=== PATIENT | female | born 1950 | race Caucasian/White ===

== ENCOUNTER 2018-12-08 13:51 | Emergency (ER) | payer OTHER ==
[2018-12-08] MEDS ORDERED: HYDROCODONE/APAP 5/325 MG TAB ONE (14:43)
--- NOTE | 2018-12-08 15:32 | RAD REPORT ---
EXAM DESCRIPTION: RAD - Elbow Left 3 View - 12/08/2018 2:55 pm CLINICAL HISTORY: Left elbow pain and swelling x1 month, no precipitating injury COMPARISON: None. FINDINGS: No fracture is identified and no elevated posterior fat pad. There is no dislocation or pe riosteal reaction noted. Soft tissues are edematous posterior to the distal humerus. There are sever al small calcifications along the posterior margin of the olecranon suspected to be degenerative or p osttraumatic calcifications in the triceps tendon. IMPRESSION: Degenerative or posttraumatic calcifications are suspected in the triceps tendon near th e ulna insertion. No fracture or acute bone or joint finding.
--- NOTE | 2018-12-08 15:43 | EDPHYS ---
Physician Documentation [facility] Name: Nicolasa Donaldson Age: 68 yrs Sex: Female : 1950 Arrival Date: 12/08/2018 Time: 13:56 Bed 25 Private MD: Caty Niño R ED Physician Xavier Jane HPI: 12/08 14:30 This 68 yrs old Female presents to ER via Wheelchair with complaints of Elbow pm1 Injury. 14:30 The patient or guardian complains of pain. The complaints affect the left elbow. pm1 Context: The problem was sustained at an unknown location, resulted from possible from increased use of arms for taking out garbage recently. debilitated. Onset: The symptoms/episode began/occurred 1 month(s) ago. Treatment prior to arrival includes: no previous treatment. Modifying factors: The symptoms are alleviated by nothing. the symptoms are aggravated by lifting weight, bending arm. Associated signs and symptoms: Pertinent negatives: decreased range of motion, deformity, fever, numbness, tingling. Severity of symptoms: in the emergency department the symptoms are unchanged. The patient has not experienced similar symptoms in the past. The patient has not recently seen a physician. Historical: - Allergies: 13:58 Codeine; hb - PMHx: 13:58 Anxiety; Diverticulitis; Hypertension; Hypothyroidism; TIA; hb - PSHx: 13:58 exploratory abd surgery; Knee surgery; Colon resection; Cholecystectomy; Appendectomy; hb Colostomy; - Immunization history:: Adult Immunizations up to date. - Social history:: Smoking status: Patient/guardian denies using tobacco. - Ebola Screening: : No symptoms or risks identified at this time. ROS: 14:30 Constitutional: Negative for fever, chills, and weight loss, Eyes: Negative for injury, pm1 pain, redness, and discharge, ENT: Negative for injury, pain, and discharge, Neck: Negative for injury, pain, and swelling, Cardiovascular: Negative for chest pain, palpitations, and edema, Respiratory: Negative for shortness of breath, cough, wheezing, and pleuritic chest pain, Abdomen/GI: Negative for abdominal pain, nausea, vomiting, diarrhea, and constipation, Back: Negative for injury and pain. 14:30 Skin: Negative for injury, rash, and discoloration, Neuro: Negative for headache, weakness, numbness, tingling, and seizure. 14:30 MS/extremity: Positive for pain, of the left elbow, Negative for decreased range of motion, deformity. Exam: 14:30 Constitutional: This is a well developed, well nourished patient who is awake, alert, pm1 and in no acute distress. Head/Face: Normocephalic, atraumatic. Neck: Trachea midline, no thyromegaly or masses palpated, and no cervical lymphadenopathy. Supple, full range of motion without nuchal rigidity, or vertebral point tenderness. No Meningismus. Chest/axilla: Normal chest wall appearance and motion. Nontender with no deformity. No lesions are appreciated. Cardiovascular: Regular rate and rhythm with a normal S1 and S2. No gallops, murmurs, or rubs. Normal PMI, no JVD. No pulse deficits. Respiratory: Lungs have equal breath sounds bilaterally, clear to auscultation and percussion. No rales, rhonchi or wheezes noted. No increased work of breathing, no retractions or nasal flaring. Abdomen/GI: Soft, non-tender, with normal bowel sounds. No distension or tympany. No guarding or rebound. No evidence of tenderness throughout. Back: No spinal tenderness. No costovertebral tenderness. Full range of motion. 14:30 Skin: Warm, dry with normal turgor. Normal color with no rashes, no lesions, and no evidence of cellulitis. 14:30 Musculoskeletal/extremity: Extremities: grossly normal except: noted in the left elbow: tenderness at triceps olecranon insertion point, There is no evidence of deformity. 14:30 Neuro: Orientation: is normal, Motor: is normal, moves all fours. Vital Signs: 13:57 BP 132 / 82; Pulse 69; Resp 16; Temp 98.4; Pulse Ox 96% on R/A; Weight 95.25 kg; Height hb 5 ft. 5 in. (165.10 cm); Pain 10/10; 14:15 BP 123 / 77; Pulse 65; Resp 16; Temp 98.3; Pulse Ox 96% ; lt1 15:01 BP 119 / 76; Pulse 65; Resp 17 S; Pulse Ox 96% on R/A; ca1 13:57 Body Mass Index 34.95 (95.25 kg, 165.10 cm) MDM: 14:01 Patient medically screened. [facility] 15:40 Data reviewed: vital signs. Data interpreted: Pulse oximetry: on room air is 96 %. pm1 Interpretation: normal. Counseling: I had a detailed discussion with the patient and/or guardian regarding: the historical points, exam findings, and any diagnostic results supporting the discharge/admit diagnosis, radiology results, the need for outpatient follow up, for definitive care, a orthopedic surgeon, to return to the emergency department if symptoms worsen or persist or if there are any questions or concerns that arise at home. 12/08 14:23 Order name: Elbow Left 3 View XRAY; Complete Time: 15:39 pm1 12/08 15:40 Order name: Sling; Complete Time: 15:59 pm1 Administered Medications: 14:30 Drug: [place] 5 mg-325 mg 1 tabs Route: PO; ca1 15:02 Follow up: Response: No adverse reaction; Pain is decreased ca1 Disposition: 12/08/18 15:41 Discharged to Home. Impression: Pain in left elbow. - Condition is Stable. - Discharge Instructions: Joint Pain, Arthritis, Musculoskeletal Pain, How to Use a Sling. - Prescriptions for Cyclobenzaprine 10 mg Oral Tablet - take 1 tablet by ORAL route every 8-12 hours As needed; 30 tablet. - Medication Reconciliation Form, Thank You Letter, Antibiotic Education, Prescription Opioid Use form. - Follow up: Emergency Department; When: As needed; Reason: Worsening of condition. Follow up: Private Physician; When: 2 - 3 days; Reason: Recheck today's complaints, Continuance of care, Re-evaluation by your physician. - Problem is new. - Symptoms have improved. Addendum: 12/13/2018 16:48 Co-signature as Attending Physician, Xavier Jane MD I agree with the assessment and c leal plan of care. Signatures: Dispatcher [employer] EDXavier Gallo MD MD cha Marinas, Patrick, ANGELICA EDITORIAL SPECIALIST pm1 Krystyna Santos, RN RN hb Marizol Cobos RN RN ca1 Corrections: (The following items were deleted from the chart) 12/08 16:08 15:41 12/08/2018 15:41 Discharged to Home. Impression: Pain in left elbow. Condition is ca1 Stable. Forms are Medication Reconciliation Form, Thank You Letter, Antibiotic Education, Prescription Opioid Use. Follow up: Emergency Department; When: As needed; Reason: Worsening of condition. Follow up: Private Physician; When: 2 - 3 days; Reason: Recheck today's complaints, Continuance of care, Re-evaluation by your physician. Problem is new. Symptoms have improved. pm1
--- NOTE | 2018-12-08 15:43 | ER ---
Nurse's Notes [facility] Name: Nicolasa Donaldson Age: 68 yrs Sex: Female : 1950 Arrival Date: 12/08/2018 Time: 13:56 Bed 25 Private MD: Caty Niño R Diagnosis: Pain in left elbow Presentation: 12/08 13:56 Presenting complaint: Left elbow pain and swelling x 1 month. Denies injury. Transition hb of care: patient was not received from another setting of care. Onset of symptoms is unknown. Risk Assessment: Do you want to hurt yourself or someone else? Patient reports no desire to harm self or others. Care prior to arrival: None. 13:56 Method Of Arrival: Wheelchair hb 13:56 Acuity: CAMILO 4 hb 14:00 Initial Sepsis Screen: Does the patient meet any 2 criteria? No. Patient's initial ca1 sepsis screen is negative. Does the patient have a suspected source of infection? No. Patient's initial sepsis screen is negative. Triage Assessment: 14:53 General: Appears. Injury Description:. ca1 Historical: - Allergies: 13:58 Codeine; hb - PMHx: 13:58 Anxiety; Diverticulitis; Hypertension; Hypothyroidism; TIA; hb - PSHx: 13:58 exploratory abd surgery; Knee surgery; Colon resection; Cholecystectomy; Appendectomy; hb Colostomy; - Immunization history:: Adult Immunizations up to date. - Social history:: Smoking status: Patient/guardian denies using tobacco. - Ebola Screening: : No symptoms or risks identified at this time. Screenin:00 Abuse screen: Denies threats or abuse. Denies injuries from another. Nutritional ca1 screening: No deficits noted. Tuberculosis screening: No symptoms or risk factors identified. Fall Risk Ambulatory Aid- Crutches/Cane/Walker (15 pts). Assessment: 14:00 General: Appears in no apparent distress. comfortable, Behavior is calm, cooperative, ca1 appropriate for age. Pain: Complains of pain in left elbow Pain does not radiate. Pain currently is 8 out of 10 on a pain scale. Pain began. Neuro: Level of Consciousness is awake, alert, obeys commands, Oriented to person, place, time, situation. Cardiovascular: Heart tones S1 S2 present Capillary refill < 3 seconds Patient's skin is warm and dry. Respiratory: Airway is patent Respiratory effort is even, unlabored, Respiratory pattern is regular, symmetrical, Breath sounds are clear bilaterally. GI:. Derm: Skin is intact, is healthy with good turgor, Skin is pink, warm \T\ dry. Musculoskeletal: Circulation, motion, and sensation intact. Capillary refill < 3 seconds, Range of motion: intact in all extremities. 15:01 Reassessment: Patient appears in no apparent distress at this time. Patient and/or ca1 family updated on plan of care and expected duration. Pain level reassessed. Patient is alert, oriented x 3, equal unlabored respirations, skin warm/dry/pink. Vital Signs: 13:57 BP 132 / 82; Pulse 69; Resp 16; Temp 98.4; Pulse Ox 96% on R/A; Weight 95.25 kg; Height hb 5 ft. 5 in. (165.10 cm); Pain 10/10; 14:15 BP 123 / 77; Pulse 65; Resp 16; Temp 98.3; Pulse Ox 96% ; lt1 15:01 BP 119 / 76; Pulse 65; Resp 17 S; Pulse Ox 96% on R/A; ca1 13:57 Body Mass Index 34.95 (95.25 kg, 165.10 cm) hb ED Course: 13:56 Patient arrived in ED. mr 13:56 Caty Niño MD is Private Physician. mr 13:57 Triage completed. hb 13:57 Arm band placed on. hb 13:59 Goyo Finley NP is PHCP. pm1 13:59 Xavier Jane MD is Attending Physician. pm1 14:00 Patient has correct armband on for positive identification. Bed in low position. Call ca1 light in reach. Side rails up X 1. Pulse ox on. NIBP on. Warm blanket given. Pillow given. 14:00 No provider procedures requiring assistance completed. Patient did not have IV access ca1 during this emergency room visit. 14:24 Marizol Cobos, VEGA is Primary Nurse. ca1 14:52 Elbow Left 3 View XRAY In Process Unspecified. EDMS 15:40 Sling applied to left arm. ca1 Administered Medications: 14:30 Drug: [place] 5 mg-325 mg 1 tabs Route: PO; ca1 15:02 Follow up: Response: No adverse reaction; Pain is decreased ca1 Outcome: 15:41 Discharge ordered by MD. pm1 16:08 Discharged to home via wheelchair, with family. ca1 16:08 Condition: stable 16:08 Discharge instructions given to patient, Instructed on discharge instructions, follow up and referral plans. medication usage, Demonstrated understanding of instructions, follow-up care, medications, Prescriptions given X 1. 16:08 Patient left the ED. ca1 Signatures: Dispatcher [employer] EDCinthya Gilbert SaviGoyo davis, CONDUIT MECHANIC CONDUIT MECHANIC pm1 Krystyna Santos, RN RN Marizol Cobos RN RN Katia Mcneal lt1
[2018-12-08 16:22] VITALS: O2SAT 96
[2018-12-08 16:23] VITALS: TEMP 98.3
[2018-12-08 16:24] VITALS: BP 119/76
== END 2018-12-08 16:08 | disposition home or self-care (01) ==
LOC: ER 13:51
DX: M25.522 Pain in left elbow (principal); I10 Essential (primary) hypertension; Z88.5 Allergy status to narcotic agent
CPT/HCPCS: 99284

== ENCOUNTER 2023-04-14 12:36 | Emergency (ER) | payer OTHER ==
[2023-04-14 14:21] LABS: Absolute Lymphocytes (CBC) 0.7 K/uL (0.7-4.9); Hematocrit 44.9 % (36.0-45.0); Lymphocytes % 3.2 % (15.3-44.8); MCV 96.5 fL (80-100); MPV 7.5 fL (7.6-11.3); Platelets 241 thou/uL (152-406); RBC Red Blood Cell Count 4.65 M/uL (3.86-4.86)
--- NOTE | 2023-04-14 14:29 | RAD REPORT ---
EXAM DESCRIPTION: CT - Head Brain Wo Cont - 04/14/2023 1:44 pm CLINICAL HISTORY: fall, trauma COMPARISON: No comparisons TECHNIQUE: Noncontrast head CT images ad were obtained without IV contrast. Multiplanar reformats we re generated and reviewed. All CT scans are performed using dose optimization technique as appropriate and may include automated exposure control or mA/KV adjustment according to patient size. FINDINGS: No intracranial hemorrhage, mass, or edema. Midline structures are unremarkable. Normal ventricular caliber for age. Patchy periventricular and deep white matter hypodensities, nonspecific, most suggestive of chronic s mall vessel ischemic changes. Melvin-white matter differentiation is preserved, without evidence of acute infarct. No abnormal extra- axial fluid collections. Mastoid air cells and visualized portions of the paranasal sinuses are clear. No acute bony findings. Soft tissue swelling and subcutaneous fat stranding overlying the right parotid region. IMPRESSION: No evidence of an acute intracranial process. Soft tissue swelling/contusion overlying the right parotid region.
[2023-04-14 15:05] LABS: Platelet Estimate ADEQ
[2023-04-14 15:06] LABS: Blood Morphology Comment NOT SEEN (NOT SEEN)
[2023-04-14 15:10] LABS: Potassium 3.6 mEq/L (3.5-5.1)
--- NOTE | 2023-04-14 15:24 | ER ---
Nurse's Notes [facility] Name: Liudmila Donaldson Age: 73 yrs Sex: Female : 1950 Arrival Date: 04/14/2023 Time: 12:36 Bed 2 Private MD: Diagnosis: Rhabdomyolysis;Cellulitis of left lower limb Presentation: 04/14 13:38 Chief complaint: EMS states: Pt from home, fell last night when trying to get up to use ph the restroom , fell at approx 10 last night, fell onto hr knees and then her face, found on ground by daughter at 1130 today, bruising to both knees, L lower extremity red, warm and swollen, skin tear to dorsal aspect of R hand, bruising to chin, hematoma to forehead, pt hypertensive, did not take morning BP meds. Coronavirus screen: Vaccine status: Patient reports receiving the 2nd dose of the covid vaccine. Ebola Screen: No symptoms or risks identified at this time. Initial Sepsis Screen: Does the patient meet any 2 criteria? No. Patient's initial sepsis screen is negative. Does the patient have a suspected source of infection? No. Patient's initial sepsis screen is negative. Risk Assessment: Do you want to hurt yourself or someone else? Patient reports no desire to harm self or others. Onset of symptoms was April 14, 2023. 13:38 Method Of Arrival: EMS: [facility] 13:38 Acuity: CAMILO 2 ph Historical: - Allergies: 13:52 Codeine; ph - PMHx: 13:52 Anxiety; Diverticulitis; Hypertension; Hypothyroidism; TIA; ph - Immunization history:: Adult Immunizations unknown. - Social history:: Smoking status: . Screenin:11 [facility] ED Fall Risk Assessment (Adult) History of falling in the last 3 months, ph including since admission Yes- single mechanical fall (1 pt) Confusion or Disorientation No (0 pts) Intoxicated or Sedated No (0 pts) Impaired Gait No (0 pts) Mobility Assist Device Used No (0 pt) Altered Elimination No (0 pt) Score/Fall Risk Level 0 - 2 = Low Risk Oriented to surroundings, Maintained a safe environment, Provided non-skid footwear, Hourly rounding (assess needs \T\ fall precautionary measures) done. Abuse screen: Denies threats or abuse. Denies injuries from another. Nutritional screening: No deficits noted. Tuberculosis screening: No symptoms or risk factors identified. Assessment: 14:00 General: Appears in no apparent distress. comfortable, obese, unkempt, Behavior is kc6 calm, cooperative, appropriate for age. Pain: Complains of pain in forehead and left foot and left leg and right leg and right hand. Neuro: Level of Consciousness is awake, alert, obeys commands, Oriented to person, place, time, situation, Appropriate for age. Cardiovascular: Capillary refill < 3 seconds. Respiratory: Airway is patent Trachea midline Respiratory effort is even, unlabored, Respiratory pattern is regular, symmetrical. GI: No signs and/or symptoms were reported involving the gastrointestinal system. : No signs and/or symptoms were reported regarding the genitourinary system. EENT: No signs and/or symptoms were reported regarding the EENT system. Derm: Skin is fragile, has skin tears on right hand Skin is pink, warm \T\ dry. Bruising that is dark purple, on AIXA knees. Musculoskeletal: No signs and/or symptoms reported regarding the musculoskeletal system. Circulation, motion, and sensation intact. Capillary refill < 3 seconds, Range of motion: intact in all extremities. 15:00 Reassessment: Patient appears in no apparent distress at this time. No changes from kc6 previously documented assessment. Patient and/or family updated on plan of care and expected duration. Pain level reassessed. Patient is alert, oriented x 3, equal unlabored respirations, skin warm/dry/pink. 18:22 Reassessment: Patient appears in no apparent distress at this time. No changes from ph previously documented assessment. Patient and/or family updated on plan of care and expected duration. Pain level reassessed. Patient is alert, oriented x 3, equal unlabored respirations, skin warm/dry/pink. Vital Signs: 13:38 BP 172 / 73; Pulse 79; Resp 18; Temp 97.8; Pulse Ox 96% on R/A; ph 15:25 BP 165 / 73; Pulse 80; Resp 19 S; Pulse Ox 96% on R/A; kc6 17:00 BP 172 / 80; Pulse 81; Resp 18; Pulse Ox 99% on R/A; ph 18:22 BP 164 / 78; Pulse 78; Resp 18; Temp 97.9; Pulse Ox 99% on R/A; ph ED Course: 12:48 Patient arrived in ED. bc6 12:49 Avila Sanderson PA is PHCP. ms3 13:46 CT Head Brain wo Cont In Process Unspecified. EDMS 13:52 Triage completed. ph 14:10 Arm band placed on Patient placed in an exam room, on a stretcher. ph 14:10 Patient has correct armband on for positive identification. Placed in gown. Bed in low ph position. Call light in reach. Client placed on continuous cardiac and pulse oximetry monitoring. NIBP monitoring applied. 14:11 Foot Left 3 View XRAY In Process Unspecified. EDMS 14:11 Tib Fib Right XRAY In Process Unspecified. EDMS 14:37 Ashok Valverde DO is Attending Physician. jr8 15:22 Elizabeth Jorgensen, RN is Primary Nurse. kc6 16:00 spoke with daniel at the [facility] . bc6 17:06 transfer accepted spoke with yvette at [facility] for a truck. bc6 18:23 No provider procedures requiring assistance completed. Patient transferred, IV remains ph in place. Administered Medications: 15:49 Drug: Cefepime IVPB 1 grams IVPB at 200 ml/hr once over 30 mins; (mix in NS 100 mL) [facility] Route: IVPB; Rate: 200 ml/hr; Infused Over: 30 mins; Site: left hand; 16:30 Follow up: Response: No adverse reaction; IV Status: Completed infusion ph 15:49 Drug: NS 0.9% IV 1000 ml IV at 1000 ml once Route: IV; Rate: 1000 ml; Site: left hand; [facility] 18:24 Follow up: Response: No adverse reaction; IV Status: Completed infusion; IV Intake: ph 1000ml 16:39 Drug: vancoMYCIN IVPB 1 grams IVPB once over 2 hrs Route: IVPB; Infused Over: 2 hrs; [facility] Site: left hand; 18:24 Follow up: Response: No adverse reaction; IV Status: Infusion continued upon transfer ph Medication: 14:11 VIS not applicable for this client. ph Intake: 18:24 IV: 1000ml; Total: 1000ml. ph Outcome: 15:24 ER care complete, transfer ordered by . jr8 18:23 Transferred by [facility] [place]. Transfer form completed. X-rays sent w/ ph patient. 18:23 Condition: stable 18:23 Instructed on the need for transfer, 18:24 Patient left the ED. ph Signatures: Dispatcher [employer] EDAvila Burnett PA PA jr8 Michelle Dick RN RN ph Ashok Valverde DO DO ms3 Elizabeth Jorgensen RN RN kc6 Irma Barnes 6 Corrections: (The following items were deleted from the chart) 14:10 13:52 Allergies: No Known Allergies; ph ph 18:24 18:23 IV Status: Infusion continued upon transfer ph ph
--- NOTE | 2023-04-14 15:24 | EDPHYS ---
Physician Documentation [facility] Name: Liudmila Donaldson Age: 73 yrs Sex: Female : 1950 Arrival Date: 04/14/2023 Time: 12:36 Bed 2 Private MD: ED Physician Ashok Valverde HPI: 04/14 14:28 This 73 yrs old Female presents to ER via EMS with complaints of Fall . jr8 14:28 Details of fall: The patient fell from an upright position, while standing. Onset: The jr8 symptoms/episode began/occurred acutely, last night. Associated injuries: The patient sustained injury to the head, right hand, right leg and left leg. Severity of symptoms: At their worst the symptoms were moderate, in the emergency department the symptoms have improved. The patient has not experienced similar symptoms in the past. The patient has not recently seen a physician. 73-year-old male that presented to emergency room via EMS after sustaining an accidental fall last night while trying to use the bathroom. Could not get up from the ground and was on the floor over 8 hours. Daughter had tried to call her multiple times this morning could not get a hold of her and immediately went to the house to find her laying on the ground. Patient was alert and oriented x4 and in no acute distress at that time. Patient complains of skin tear to the right hand, pain to the right knee region and pain to the left foot. Denies having any preceding symptoms prior to the fall. Family noticed that the left leg incidentally had marked increase in redness and warmth which they did not see yesterday. Historical: - Allergies: 13:52 Codeine; ph - PMHx: 13:52 Anxiety; Diverticulitis; Hypertension; Hypothyroidism; TIA; ph - Immunization history:: Adult Immunizations unknown. - Social history:: Smoking status: . ROS: 14:28 Eyes: Negative for injury, pain, redness, and discharge, ENT: Negative for injury, jr8 pain, and discharge, Neck: Negative for injury, pain, and swelling, Cardiovascular: Negative for chest pain, palpitations, and edema, Respiratory: Negative for shortness of breath, cough, wheezing, and pleuritic chest pain, Abdomen/GI: Negative for abdominal pain, nausea, vomiting, diarrhea, and constipation, Back: Negative for injury and pain, Neuro: Negative for headache, weakness, numbness, tingling, and seizure, 14:28 MS/extremity: Positive for ecchymosis, pain, tenderness, of the right hand, left foot and right leg, 14:28 Skin: Positive for erythema, swelling, of the left leg, Exam: 14:28 Constitutional: This is a well developed, well nourished patient who is awake, alert, jr8 and in no acute distress. 14:28 Eyes: Pupils equal round and reactive to light, extra-ocular motions intact. Lids and lashes normal. Conjunctiva and sclera are non-icteric and not injected. Cornea within normal limits. Periorbital areas with no swelling, redness, or edema. ENT: Nares patent. No nasal discharge, no septal abnormalities noted. Tympanic membranes are normal and external auditory canals are clear. Oropharynx with no redness, swelling, or masses, exudates, or evidence of obstruction, uvula midline. Mucous membranes moist. 14:28 Chest/axilla: Normal chest wall appearance and motion. Nontender with no deformity. No lesions are appreciated. Cardiovascular: Regular rate and rhythm with a normal S1 and S2. No gallops, murmurs, or rubs. Normal PMI, no JVD. No pulse deficits. Respiratory: Lungs have equal breath sounds bilaterally, clear to auscultation and percussion. No rales, rhonchi or wheezes noted. No increased work of breathing, no retractions or nasal flaring. Abdomen/GI: Soft, non-tender, with normal bowel sounds. No distension or tympany. No guarding or rebound. No evidence of tenderness throughout. left sided colostomy present. No acute findings. Stable hernia that she has had Back: No spinal tenderness. No costovertebral tenderness. Full range of motion. Skin: Warm, dry with normal turgor. Normal color with no rashes, no lesions, and no evidence of cellulitis. Neuro: Awake and alert, GCS 15, oriented to person, place, time, and situation. Cranial nerves II-XII grossly intact. Motor strength 5/5 in all extremities. Sensory grossly intact. 14:28 Head/face: Noted is ecchymosis, that is mild, of the forehead, 14:28 Neck: External neck: ecchymosis, that is mild, of the thyroid cartilage, C-spine: appears grossly normal, no vertebral tenderness, no crepitus, Trachea: is midline with no obvious abnormalities, ROM/movement: is normal, 14:28 Musculoskeletal/extremity: Extremities: grossly normal except: noted in the right leg at the anterior tibial tuberosity : ecchymosis, pain, tenderness, noted in the left great toe: ecchymosis, pain, noted in the right hand: ecchymosis, skin tear to dorsal hand with hematoma and swelling , Vital Signs: 13:38 BP 172 / 73; Pulse 79; Resp 18; Temp 97.8; Pulse Ox 96% on R/A; ph 15:25 BP 165 / 73; Pulse 80; Resp 19 S; Pulse Ox 96% on R/A; kc6 17:00 BP 172 / 80; Pulse 81; Resp 18; Pulse Ox 99% on R/A; ph 18:22 BP 164 / 78; Pulse 78; Resp 18; Temp 97.9; Pulse Ox 99% on R/A; ph MDM: 12:57 Patient medically screened. [facility] 15:27 Differential diagnosis: closed head injury, contusion, fracture, Rhabdomyolysis, jr8 cellulitis, DVT. Data reviewed: vital signs, nurses notes, lab test result(s), radiologic studies, CT scan, plain films. Management of patient was discussed with the following:. Counseling: I had a detailed discussion with the patient and/or guardian regarding the historical points, exam findings, and any diagnostic results supporting the discharge/admit diagnosis, lab results, radiology results, the need to transfer to another facility, At capacity and holding in ER. Response to treatment: the patient's symptoms have mildly improved after treatment. ED course: Discussed with patient and family that patient has rhabdomyolysis and cellulitis with 22,000 white cell count. Need to transfer at this time as we are at full capacity and holding in the emergency room. Family and patient were okay with this and good with moving to [place] if accepted. Spoke with Dr. Cardona who accepted patient for telemetry at [facility].. 04/14 12:57 Order name: CBC with Diff; Complete Time: 15:8 04/14 12:57 Order name: Basic Metabolic Panel; Complete Time: 15:8 04/14 12:57 Order name: CK; Complete Time: 15:16 8 04/14 15:06 Order name: Manual Differential; Complete Time: 15:09 EDSD 04/14 13:27 Order name: CT Head Brain wo Cont; Complete Time: 14:37 jr8 04/14 13:27 Order name: Foot Left 3 View XRAY; Complete Time: 16:10 jr8 04/14 13:27 Order name: Tib Fib Right XRAY; Complete Time: 16:10 jr8 04/14 12:57 Order name: IV Saline Lock; Complete Time: 14:10 jr8 Administered Medications: 15:49 Drug: Cefepime IVPB 1 grams IVPB at 200 ml/hr once over 30 mins; (mix in NS 100 mL) kc6 Route: IVPB; Rate: 200 ml/hr; Infused Over: 30 mins; Site: left hand; 16:30 Follow up: Response: No adverse reaction; IV Status: Completed infusion ph 15:49 Drug: NS 0.9% IV 1000 ml IV at 1000 ml once Route: IV; Rate: 1000 ml; Site: left hand; kc6 18:24 Follow up: Response: No adverse reaction; IV Status: Completed infusion; IV Intake: ph 1000ml 16:39 Drug: vancoMYCIN IVPB 1 grams IVPB once over 2 hrs Route: IVPB; Infused Over: 2 hrs; kc6 Site: left hand; 18:24 Follow up: Response: No adverse reaction; IV Status: Infusion continued upon transfer ph Disposition: 19:28 I was immediately available on-site in the Emergency Department for consultation in the ms3 care of the patient. Disposition Summary: 04/14/23 15:24 Transfer Ordered Notes: Transfer Location: Other Acute Care Facility jr8 Reason: Higher level of care jr8 Condition: Stable jr8 Problem: new jr8 Symptoms: have improved jr8 Accepting Physician: Dr. Cardona (04/14/23 18:24) ph Diagnosis - Rhabdomyolysis jr8 - Cellulitis of left lower limb jr8 Forms: - Medication Reconciliation Form jr8 - SBAR form jr8 Signatures: Dispatcher [employer] EDMS Avila Sanderson PA PA jr8 Michelle Dick RN RN ph Ashok Valverde DO DO ms3 Elizabeth Jorgensen RN RN kc6 Corrections: (The following items were deleted from the chart) 14: 13:52 Allergies: No Known Allergies; ph ph 18:24 15:24 Dr. Cardona jr8 ph
[2023-04-14] MEDS ORDERED: NA CHLORIDE 0.9% 100 ML ONE (15:45)
[2023-04-14] MEDS ORDERED: VANCOMYCIN 1 GM/VIAL ONE (15:45)
[2023-04-14] MEDS ORDERED: CEFEPIME 1 GM/VIAL ONE (15:45)
[2023-04-14] MEDS ORDERED: NA CHLORIDE 0.9% 1,000 ML ONE (15:45)
[2023-04-14] MEDS ORDERED: NA CHLORIDE 0.9% 250 ML ONE (15:45)
--- NOTE | 2023-04-14 16:06 | RAD REPORT ---
EXAM DESCRIPTION: RAD - Foot Left 3 View - 04/14/2023 2:09 pm CLINICAL HISTORY: PAIN COMPARISON: No comparisons TECHNIQUE: Left foot, 3 views. FINDINGS: No fracture, dislocation or periosteal reaction. Osseous remodeling with severe arthritic changes and volume loss along the lateral aspect of the cuboid, may reflect an element of Charcot art hropathy. Diffuse osteopenia limits evaluation. Pronounced soft tissue swelling, most notably at the dorsum of the foot. Pes planus. Large calcaneal spur. IMPRESSION: Soft tissue swelling and chronic findings as above. No acute osseus abnormality.
--- NOTE | 2023-04-14 16:07 | RAD REPORT ---
EXAM DESCRIPTION: RAD - Tib Fib Right - 04/14/2023 2:09 pm CLINICAL HISTORY: PAIN COMPARISON: Foot Left 3 View dated 04/14/2023 TECHNIQUE: Right tibia and fibula, 2 views. FINDINGS: No fracture is identified. Components of total knee arthroplasty seen on the AP view only. There is no dislocation or periosteal reaction noted. No acute or suspicious bony finding. Small bon e island along the midshaft tibia. Lobulated medial proximal lower leg ossified density, may represent a venous phleboliths. Moderately pronounced soft tissue swelling. No foreign body or other soft tissue abnormality. IMPRESSION: Soft tissue abnormalities as above. Partially visualized components of total knee arthro plasty. No acute osseous findings.
[2023-04-14 18:53] VITALS: O2SAT 99
[2023-04-14 18:55] VITALS: BP 164/78; TEMP 97.9
== END 2023-04-14 18:24 ==
LOC: ER 12:36
DX: M62.82 Rhabdomyolysis (principal); L03.116 Cellulitis of left lower limb; W18.30XA Fall on same level, unspecified, initial encounter; I10 Essential (primary) hypertension; Z88.5 Allergy status to narcotic agent
CPT/HCPCS: 96365; 96367; 85025; 80048; 36415; 82550; 70450; 73630; 73590; 99285; J7050; J7030; J0692

== ENCOUNTER 2024-10-25 10:02 | Emergency (ER) | payer OTHER ==
[2024-10-25] MEDS ORDERED: NA CHLORIDE 0.9% 1,000 ML ONE ×2 (10:48→11:39)
[2024-10-25 10:53] LABS: Absolute Eosinophils 0.1 K/uL (0-0.5); Absolute Lymphocytes (CBC) 0.8 K/uL (0.7-4.9); Absolute Monocytes 0.7 K/uL (0.1-1.3); Absolute Neutrophil 10.2 K/uL (1.8-8.0); Basophils % 0.3 % (0-1.3); Eosinophils % 1.2 % (0-4.4); Hematocrit 45.5 % (36.0-45.0); Hemoglobin 15.4 g/dL (12.0-15.0); Lymphocytes % 6.5 % (15.3-44.8); MCH 33.1 pg (27.0-35.0); MCHC 33.9 g/dL (32.0-36.0); MCV 97.7 fL (80-100); Monocytes % 6.1 % (3.3-12.3); Neutrophils % 85.9 % (41.7-73.7); Platelets 235 thou/uL (152-406); RBC Red Blood Cell Count 4.66 M/uL (3.86-4.86); Red Cell Distribution Width 13.5 % (12.1-15.2)
[2024-10-25 11:13] LABS: Albumin 3.4 g/dL (3.4-5.0); Albumin/Globulin Ratio 0.8 (1.1-1.8); Anion Gap 11.6 mEq/L (5.0-15.0); Bilirubin Direct 0.3 mg/dL (0-0.2); Bilirubin Indirect, Calculated 0.8 mg/dL (0.2-0.8); Bilirubin Total 1.1 mg/dL (0.2-1.0); Globulin 4.2 g/dL (2.3-3.5); Magnesium 1.7 mg/dL (1.6-2.4); Potassium 3.6 mEq/L (3.5-5.1); Protein, Total 7.6 g/dL (6.4-8.2); Troponin High Sensitivity 8.9 pg/mL (<58.9)
[2024-10-25 11:31] LABS: PT Prothrombin Time 12.6 SECONDS (10-13.0); Protime INR 1.11
[2024-10-25 11:54] LABS: Sqamous Epithelial <5 /HPF (None Seen); Urine Bacteria <20 /HPF (<20); Urine Bilirubin NEGATIVE (Negative); Urine Blood 1+ (Negative); Urine Clarity Extremely Turbid (Clear); Urine Color Yellow (Yellow); Urine Crystals Unidentified Few /HPF (None Seen); Urine Culture Reflex Order REFLEXED; Urine Glucose NEGATIVE (Negative); Urine Ketones NEGATIVE (Negative); Urine Microscopic Reflex YN ORDER UMIC; Urine Nitrite NEGATIVE (Negative); Urine Protein TRACE (Negative); Urine RBC <5 /HPF (None Seen); Urine Urobilinogen Normal (Normal); Urine WBC >50 /HPF (<5); Urine WBC Clump Rare /HPF (None Seen); Urine Yeast (Budding) Occasional /HPF (None Seen); Urine pH 6.5 (5.0-7.0)
--- NOTE | 2024-10-25 12:04 | RAD REPORT ---
EXAMINATION: ONE VIEW CHEST XR CLINICAL INDICATION: Female, 74 years old.,COUGH TECHNIQUE: Frontal chest projection is submitted. Examination is limited by patient positioning and t echnique. COMPARISON: 09/28/2016. FINDINGS: The lungs are well inflated and clear. No pneumothorax or sizable effusion. The heart is normal in s ize. Mediastinal contours are unremarkable. IMPRESSION: No acute intrathoracic abnormalities.
--- NOTE | 2024-10-25 12:10 | RAD REPORT ---
EXAM: CT Head Brain Wo Cont HISTORY: SYNCOPE COMPARISON: 04/14/2023 TECHNIQUE: Multiple contiguous axial images were obtained for a CT of the brain without contrast. Sag ittal and coronal reformats were performed. One or more of the following dose reduction techniques were used: Automated exposure control, adjus tment of the mA and kV according to patient size, and iterative reconstruction. Unless otherwise specified, incidental findings do not require dedicated imaging follow-up. FINDINGS: No evidence of hydrocephalus, intracranial hemorrhage, or extra-axial fluid collection. Moderate brain atrophy with moderate periventricular and deep white matter chronic microvascular isc hemic changes, stable. The calvarium is intact. The visualized paranasal sinuses and mastoid air cells are essentially clear . IMPRESSION: No evidence of acute intracranial abnormality. Chronic findings as above.
[2024-10-25 12:15] LABS: Blood Morphology Comment NOT SEEN (NOT SEEN); Platelet Estimate ADEQ; White Blood Cell Scan OK (OK)
[2024-10-25] MEDS ORDERED: MAGNESIUM SULFATE 1 gm IVPB 1 GM/100 ML BAG IV ONE (12:17)
--- NOTE | 2024-10-25 13:13 | ER ---
Nurse's Notes [facility] Name: Liudmila Donaldson Age: 74 yrs Sex: Female : 1950 Arrival Date: 10/25/2024 Time: 10:02 Bed 13 Private MD: Diagnosis: Syncope Near;Morbid (severe) obesity with alveolar hypoventilation;UTI/ Urinary tract infection, site not specified Presentation: 10/25 10:27 Chief complaint: Patient states: she had a near syncopal episode while attempting to ap3 get into the shower this morning, but did not pass out. Coronavirus screen: At this time, the client does not indicate any symptoms associated with coronavirus-19. Ebola Screen: No symptoms or risks identified at this time. Initial Sepsis Screen: Does the patient meet any 2 criteria? No. Patient's initial sepsis screen is negative. Does the patient have a suspected source of infection? No. Patient's initial sepsis screen is negative. Risk Assessment: Do you want to hurt yourself or someone else? Patient reports no desire to harm self or others. Onset of symptoms was October 25, 2024. 10:27 Method Of Arrival: EMS: [facility] ap3 10:27 Acuity: CAMILO 3 ap3 Triage Assessment: 10:29 General: Appears in no apparent distress. Behavior is calm, cooperative, appropriate ap3 for age. Pain: Denies pain. 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 Cardiovascular: Patient's skin is warm and dry. Respiratory: Airway is patent Respiratory effort is even, unlabored, Respiratory pattern is regular, symmetrical. Historical: - Allergies: 10:28 Codeine; ap3 - Home Meds: 10:58 levothyroxine 75 mcg capsule 1 cap daily [Active]; aspirin 81 mg Oral tablet 1 tab ll1 daily [Active]; valsartan 320 mg oral tablet .5 tab daily [Active]; hydrochlorothiazide 25 mg Oral tablet 1 tab daily [Active]; pravastatin 40 mg oral tablet 1 tab nightly [Active]; gabapentin 300 mg oral capsule 1 cap nightly [Active]; citalopram oral daily [Active]; Vitamin D Oral daily [Active]; tizanidine 4 mg oral tablet daily [Active]; - PMHx: 10:28 Anxiety; Diverticulitis; Hypertension; Hypothyroidism; TIA; ap3 - Immunization history:: Client reports receiving the 2nd dose of the Covid vaccine, Flu vaccine is up to date. - Infectious Disease History:: Denies. - Social history:: Smoking status: Patient denies any tobacco usage or history of. - Family history:: not pertinent. Screenin:29 Abuse screen: Denies threats or abuse. Nutritional screening: No deficits noted. ap3 Tuberculosis screening: No symptoms or risk factors identified. 10:50 [facility] ED Fall Risk Assessment (Adult) History of falling in the last 3 months, ll1 including since admission Yes- physiologic fall (2 pts) Confusion or Disorientation No (0 pts) Intoxicated or Sedated No (0 pts) Impaired Gait Yes (1 pt) Mobility Assist Device Used Yes (1 pt) Altered Elimination No (0 pt) Score/Fall Risk Level 3 or more points = High Risk Maintained a safe environment, Hourly rounding (assess needs \T\ fall precautionary measures) done. Assessment: 10:50 General: Appears in no apparent distress. Behavior is calm, cooperative, appropriate ll1 for age, Reports fatigue for. Pain: Denies pain. Neuro: Reports dizziness, a syncopal episode weakness. GI: Reports nausea. 11:25 Reassessment: No changes from previously documented assessment. Dr. Jane at . ll1 13:53 Reassessment: Patient appears in no apparent distress at this time. Patient and/or jb4 family updated on plan of care and expected duration. Pain level reassessed. Patient is alert, oriented x 3, equal unlabored respirations, skin warm/dry/pink. Vital Signs: 10:27 BP 134 / 59; Pulse 77; Resp 17; Temp 98.2(O); Pulse Ox 96% on R/A; Weight 140.16 kg; ap3 14:26 BP 133 / 85; Pulse 63; Resp 16; Pulse Ox 95% on R/A; jb4 ED Course: 10:17 Patient arrived in ED. iw 10:19 Xavier Jane MD is Attending Physician. clara 10:22 Initial lab(s) drawn, by ar, sent to lab. EKG done, by ob tech. reviewed by Xavier ll1 Buck OLSEN. Inserted saline lock: 22 gauge in left antecubital area, using aseptic technique. Blood collected. Flushed with 10 mL NS. 10:28 Triage completed. ap3 10:29 Veronica Rainey, RN is Primary Nurse. ll1 10:29 Arm band placed on right wrist. ap3 10:51 Patient has correct armband on for positive identification. Call light in reach. ll1 Provided Education on: ER procedures and process. 10:56 CT Head Brain wo Cont In Process Unspecified. EDMS 11:01 XRAY Chest (1 view) In Process Unspecified. EDMS 12:41 US Extremity Venous W Compression Julio Cesar In Process Unspecified. EDMS 14:26 No provider procedures requiring assistance completed. IV discontinued, intact, jb4 bleeding controlled, No redness/swelling at site. Pressure dressing applied. Administered Medications: 11:07 Drug: NS 0.9% IV 1000 ml IV at 1000 ml once; to be given as a bolus over 60 minutes ap3 Route: IV; Rate: 1000 ml; Site: left antecubital; 12:39 Drug: Magnesium Sulfate IVPB 1 grams IVPB once over 1 hrs Route: IVPB; Infused Over: 1 jb4 hrs; Site: left forearm; 13:55 Drug: Rocephin IV 1 grams IV at per protocol once; Given slow IV push per pharmacy jb4 instructions Route: IV; Rate: per protocol; Site: left antecubital; 13:55 Drug: Cefdinir PO 300 mg PO once Route: PO; jb4 13:55 Drug: Ciprofloxacin PO 500 mg PO once Route: PO; jb4 13:56 Not Given (pt dischargedd): ns 0.9% 1000 ml IV at 1000 ml once; to be given as a bolus jb4 over 60 minutes Medication: 10:51 VIS not applicable for this client. ll1 Outcome: 13:13 Discharge ordered by . clara 14:26 Discharged to home via wheelchair, with family, jb4 14:26 Condition: stable 14:26 Discharge instructions given to patient, family, Instructed on discharge instructions, follow up and referral plans. medication usage, Demonstrated understanding of instructions, follow-up care, medications, Prescriptions given X 2, 14:27 Patient left the ED. jb4 Addendum: 10/30/2024 07:31 Addendum: Culture Results: Positive urine culture. No further action required. Bacteria s s sensitive to prescribed antibiotic. Signatures: Dispatcher [employer] Xavier Llanes MD MD cha Williams, Irene, RN RN Mary Fraser, RN RN ss Jarek Retana RN RN jb4 Cristine Vasquez RN RN ap3 Veronica Rainey RN RN ll1
--- NOTE | 2024-10-25 13:14 | EDPHYS ---
Physician Documentation [facility] Name: Liudmila Donaldson Age: 74 yrs Sex: Female : 1950 Arrival Date: 10/25/2024 Time: 10:02 Bed 13 Private MD: ED Physician Xavier Jane HPI: 10/25 11:35 This 74 yrs old Female presents to ER via EMS with complaints of near syncope.clara 11:35 The patient has experienced near-syncope, almost passed out, felt dizzy, nausea. Onset: clara The symptoms/episode began/occurred today. Duration: This was a single episode, that lasted 20 second(s). Associated signs and symptoms: Pertinent positives: nausea. The patient has not experienced similar symptoms in the past. Historical: - Allergies: 10:28 Codeine; ap3 - Home Meds: 10:58 levothyroxine 75 mcg capsule 1 cap daily [Active]; aspirin 81 mg Oral tablet 1 tab ll1 daily [Active]; valsartan 320 mg oral tablet .5 tab daily [Active]; hydrochlorothiazide 25 mg Oral tablet 1 tab daily [Active]; pravastatin 40 mg oral tablet 1 tab nightly [Active]; gabapentin 300 mg oral capsule 1 cap nightly [Active]; citalopram oral daily [Active]; Vitamin D Oral daily [Active]; tizanidine 4 mg oral tablet daily [Active]; - PMHx: 10:28 Anxiety; Diverticulitis; Hypertension; Hypothyroidism; TIA; ap3 - Immunization history:: Client reports receiving the 2nd dose of the Covid vaccine, Flu vaccine is up to date. - Infectious Disease History:: Denies. - Social history:: Smoking status: Patient denies any tobacco usage or history of. - Family history:: not pertinent. ROS: 11:35 Constitutional: Negative for fever, chills, and weight loss, Eyes: Negative for injury, clara pain, redness, and discharge, ENT: Negative for injury, pain, and discharge, Neck: Negative for injury, pain, and swelling, Cardiovascular: Negative for chest pain, palpitations, and edema, Respiratory: Negative for shortness of breath, cough, wheezing, and pleuritic chest pain, Abdomen/GI: Negative for abdominal pain, nausea, vomiting, diarrhea, and constipation, Back: Negative for injury and pain, : Negative for injury, bleeding, discharge, and swelling, MS/Extremity: Negative for injury and deformity, Skin: Negative for injury, rash, and discoloration, Psych: Negative for depression, anxiety, suicide ideation, homicidal ideation, and hallucinations, Allergy/Immunology: Negative for hives, rash, and allergies, Endocrine: Negative for neck swelling, polydipsia, polyuria, polyphagia, and marked weight changes, Hematologic/Lymphatic: Negative for swollen nodes, abnormal bleeding, and unusual bruising, 11:35 Neuro: Positive for near syncope, weakness, Exam: 11:35 Constitutional: This is a well developed, well nourished patient who is awake, alert, clara and in no acute distress. Head/Face: Normocephalic, atraumatic. Eyes: Pupils equal round and reactive to light, extra-ocular motions intact. Lids and lashes normal. Conjunctiva and sclera are non-icteric and not injected. Cornea within normal limits. Periorbital areas with no swelling, redness, or edema. ENT: Nares patent. No nasal discharge, no septal abnormalities noted. Tympanic membranes are normal and external auditory canals are clear. Oropharynx with no redness, swelling, or masses, exudates, or evidence of obstruction, uvula midline. Mucous membranes moist. Neck: Trachea midline, no thyromegaly or masses palpated, and no cervical lymphadenopathy. Supple, full range of motion without nuchal rigidity, or vertebral point tenderness. No Meningismus. Chest/axilla: Normal chest wall appearance and motion. Nontender with no deformity. No lesions are appreciated. Cardiovascular: Regular rate and rhythm with a normal S1 and S2. No gallops, murmurs, or rubs. Normal PMI, no JVD. No pulse deficits. Respiratory: Lungs have equal breath sounds bilaterally, clear to auscultation and percussion. No rales, rhonchi or wheezes noted. No increased work of breathing, no retractions or nasal flaring. Abdomen/GI: Soft, non-tender, with normal bowel sounds. No distension or tympany. No guarding or rebound. No evidence of tenderness throughout. Back: No spinal tenderness. No costovertebral tenderness. Full range of motion. Female : Normal external genitalia. Skin: Warm, dry with normal turgor. Normal color with no rashes, no lesions, and no evidence of cellulitis. MS/ Extremity: Pulses equal, no cyanosis. Neurovascular intact. Full, normal range of motion., bilateral aka Neuro: Awake and alert, GCS 15, oriented to person, place, time, and situation. Cranial nerves II-XII grossly intact. Motor strength 5/5 in all extremities. Sensory grossly intact. Cerebellar exam normal. Normal gait. Psych: Awake, alert, with orientation to person, place and time. Behavior, mood, and affect are within normal limits. 11:35 ECG was reviewed by the Attending Physician. Vital Signs: 10:27 BP 134 / 59; Pulse 77; Resp 17; Temp 98.2(O); Pulse Ox 96% on R/A; Weight 140.16 kg; ap3 14:26 BP 133 / 85; Pulse 63; Resp 16; Pulse Ox 95% on R/A; jb4 MDM: 10:19 Medical Screening Exam initiated clara 11:38 Differential Diagnosis: aortic aneurysm, cardiac arrhythmia, cerebrovascular accident, clara emotional response, GI bleed, idiopathic syncope, pseudo seizure, seizure, sepsis, transient ischemic attack, vasovagal episode. Data reviewed: vital signs, nurses notes, EMS record, lab test result(s), EKG, radiologic studies, CT scan, plain films. Consideration of Admission/Observation Escalation of care including admission/observation considered. I considered the following discharge prescriptions or medication management in the emergency department Medications were administered in the Emergency Department. See MAR. Independent interpretation of the following test(s) in the Emergency Department EKG: See my EKG interpretation above. Test considered but Not performed: Ultrasound no 2 decho. Care significantly affected by the following chronic conditions: Hypertension, anxiety, colostomy, hypothyroid. 10/25 10:39 Order name: Basic Metabolic Panel; Complete Time: 11:33 [facility] 10/25 10:39 Order name: CBC with Diff; Complete Time: 13:10 [facility] 10/25 10:39 Order name: LFT's; Complete Time: 11:33 clara 10/25 10:39 Order name: Magnesium; Complete Time: 11:33 clara 10/25 10:39 Order name: NT PRO-BNP; Complete Time: 11:33 [facility] 10/25 10:39 Order name: PT-INR; Complete Time: 11:10/25 10:39 Order name: Troponin HS; Complete Time: 11:33 [facility] 10/25 10:39 Order name: Lipase; Complete Time: 11:33 [facility] 10/25 10:39 Order name: UA Rfx Basilio Cult if indicated; Complete Time: 13:10 [facility] 10/25 11:00 Order name: CBC Smear Scan; Complete Time: 13:10 [facility] 10/25 11:58 Order name: Urine Culture [facility] 10/25 10:39 Order name: XRAY Chest (1 view); Complete Time: 13:10 [facility] 10/25 10:40 Order name: CT Head Brain wo Cont; Complete Time: 13:10 [facility] 10/25 11:33 Order name: US Extremity Venous W Compression Julio Cesar [facility] 10/25 10:39 Order name: Cardiac monitoring; Complete Time: 10:45 [facility] 10/25 10:39 Order name: EKG - Nurse/Tech; Complete Time: 10:45 [facility] 10/25 10:39 Order name: IV Saline Lock; Complete Time: 10:45 [facility] 10/25 10:39 Order name: Labs collected and sent; Complete Time: 10:45 [facility] 10/25 10:39 Order name: O2 Per Protocol; Complete Time: 10:45 [facility] 10/25 10:39 Order name: O2 Sat Monitoring; Complete Time: 10:45 [facility] EC:35 Rate is 74 beats/min. Rhythm is regular. QRS [place] is Normal. DC interval is normal. QRS clara interval is normal. QT interval is normal. No Q waves. T waves are Normal. No ST changes noted. Clinical impression: NSR w/ Non-specific ST/T Changes and No evidence of ischemia. Interpreted by me. Reviewed by me. Administered Medications: 11:07 Drug: NS 0.9% IV 1000 ml IV at 1000 ml once; to be given as a bolus over 60 minutes ap3 Route: IV; Rate: 1000 ml; Site: left antecubital; 12:39 Drug: Magnesium Sulfate IVPB 1 grams IVPB once over 1 hrs Route: IVPB; Infused Over: 1 jb4 hrs; Site: left forearm; 13:55 Drug: Rocephin IV 1 grams IV at per protocol once; Given slow IV push per pharmacy jb4 instructions Route: IV; Rate: per protocol; Site: left antecubital; 13:55 Drug: Cefdinir PO 300 mg PO once Route: PO; jb4 13:55 Drug: Ciprofloxacin PO 500 mg PO once Route: PO; jb4 13:56 Not Given (pt dischargedd): ns 0.9% 1000 ml IV at 1000 ml once; to be given as a bolus jb4 over 60 minutes Disposition Summary: 10/25/24 13:13 Discharge Ordered Notes: Location: Home clara Problem: new clara Symptoms: have improved clara Condition: Stable clara Diagnosis - Syncope Near clara - Morbid (severe) obesity with alveolar hypoventilation clara - UTI/ Urinary tract infection, site not specified clara Followup: clara - With: Private Physician - When: 2 - 3 days - Reason: Recheck today's complaints, Continuance of care, Re-evaluation by your physician Discharge Instructions: - Discharge Summary Sheet clara - Near-Syncope clara - Obesity, Adult clara - Urinary Tract Infection, Adult, [id number] clara - Near-Syncope, [id number] clara - Obesity, Adult, [id number] clara Forms: - Medication Reconciliation Form clara - Antibiotic Education clara - Prescription Opioid Use clara - Patient Portal Instructions clara - Leadership Thank You Letter [facility] Prescriptions: - cefdinir 300 mg Oral capsule - take 2 capsule ORAL route daily for 7 days; 14 capsule; Refills: 0, Product clara Selection Permitted - Cipro 250 mg Oral tablet - take 1 tablet ORAL route every 12 hours; 10 tablet; Refills: 0, Product clara Selection Permitted Signatures: Dispatcher [employer] EDXavier Gallo MD MD cha Bryson, James, RN RN jb4 Cristine Vasquez RN RN ap3 Veronica Rainey RN RN ll1 Corrections: (The following items were deleted from the chart) 10:40 10:40 BASIC METABOLIC PANEL+C.LAB.BRZ ordered. EDMS EDMS 10:40 10:40 CBC+H.LAB.BRZ ordered. EDMS EDMS 10:40 10:40 HEPATIC FUNCTION+C.LAB.BRZ ordered. EDMS EDMS 10:40 10:40 MAGNESIUM+C.LAB.BRZ ordered. EDMS EDMS 10:40 10:40 PROBNP+C.LAB.BRZ ordered. EDMS EDMS 10:40 10:40 PROTIME (+INR)+COAG.LAB.BRZ ordered. EDMS EDMS 10:40 10:40 Troponin High Sensitivity+C.LAB.BRZ ordered. EDMS EDMS 10:40 10:40 LIPASE+C.LAB.BRZ ordered. EDMS EDMS 10:40 10:40 UA Rfx Basilio Cult if indicated+U.LAB.BRZ ordered. EDMS EDMS 10:40 10:40 Chest Single View+RAD.RAD.BRZ ordered. EDMS EDMS 11:34 11:34 Extrem Venous W Compression Julio Cesar+US.RAD.BRZ ordered. EDMS EDMS
--- NOTE | 2024-10-25 13:38 | RAD REPORT ---
EXAMINATION: US BILATERAL LOWER EXTREMITY VENOUS DOPPLER CLINICAL INDICATION: PAIN TECHNIQUE: Complete bilateral duplex sonography of the BILATERAL lower extremity veins was performed. The examination included compression for vein patency, color Doppler imaging and flow augmentation in response to distal compression of the distal external iliac, common femoral, femoral, popliteal, t ibial, and great and small saphenous veins. COMPARISON: No prior exam. FINDINGS: Duplex sonography testing of the veins of the BILATERAL lower extremity was performed. Color flow danita ging shows all veins to be compressible with [id number] color filling. Pulsatile and phasic flow is present within all lower extremity deep and superficial veins examined. IMPRESSION: There is no deep vein or superficial vein thrombosis.
[2024-10-25] MEDS ORDERED: CEFTRIAXONE 1000 MG/VIAL ONE (13:42)
[2024-10-25] MEDS ORDERED: CEFDINIR 300 MG CAP PO ONE (13:42)
[2024-10-25] MEDS ORDERED: CIPROFLOXACIN HCL 500 MG TAB ONE (13:42)
[2024-10-25 14:41] VITALS: TEMP 98.2
[2024-10-25 14:47] VITALS: BP 133/85; O2SAT 95
--- NOTE | 2024-10-30 12:38 | EKG ---
Test Date: 2024-10-25 Test Time: 10:38:40 [place]: AM MEASUREMENT RESULTS: Intervals: Rate: 74 [place]: 178 QRSD: 94 QT: 382 QTc: 424 [place]: P: 52 [place]: 178 QRS: -51 T: 61 INTERPRETIVE STATEMENTS: Normal sinus rhythm Left axis deviation Possible Lateral infarct, age undetermined Abnormal ECG Compared to ECG 09/28/2016 21:15:45 Left-axis deviation now present Sinus bradycardia no longer present Myocardial infarct finding still present Electronically Signed On 10-30-24 12:27:51 CDT by Herson Almodovar
== END 2024-10-25 14:27 | disposition home or self-care (01) ==
LOC: ER 10:02
DX: E66.2 Morbid (severe) obesity with alveolar hypoventilation (principal); N39.0 Urinary tract infection, site not specified; I10 Essential (primary) hypertension; E03.9 Hypothyroidism, unspecified; F41.9 Anxiety disorder, unspecified; Z79.82 Long term (current) use of aspirin
CPT/HCPCS: 93005; 87088; 85025; 81001; 87086; 80048; 36415; 83735; 85610; 80076; 87077; 87186; 84484; 83690; 83880; 70450; 71045; 93970; 99284; J3475; J7030 ×2; J0696